=== PATIENT | male | born 2000 | race African-American/Black ===

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

== ENCOUNTER 2020-03-09 12:15 | Emergency (ER) | payer MEDICAID, OTHER ==
[2020-03-09] MEDS ORDERED: MAG HYDROX/AL HYDROX/SIMETH SUSP 30 ML UDCUP PO ONE (12:32)
[2020-03-09] MEDS ORDERED: METOCLOPRAMIDE HCL ORAL SOLN 10 MG/10 ML UDCUP PO ONE (12:32)
[2020-03-09] MEDS ORDERED: LIDOCAINE 2% VISCOUS SOLN 15 ML UDCUP PO ONE (12:32)
[2020-03-09] MEDS ORDERED: NORMAL SALINE 1000 ML 1,000 ML IV ONE (12:33)
--- NOTE | 2020-03-09 12:34 | ER Document Report ---
ED Medical Screen (RME) - General Chief Complaint: Epigastric Pain Stated Complaint: ABDOMINAL PAIN Time Seen by Provider: 03/09/20 12:28 Primary Care Provider: TODD ADAMES MD [ACTIVE STAFF] - Follow up as needed SHANNON MCKINNEY MD [NO LOCAL MD] - Follow up as needed ASCENCION MURO MD [ACTIVE STAFF] - Follow up as needed GIDEON TITUS [Primary Care Provider] - Follow up as needed Notes: Patient is a 19-year-old male who presents to the emergency department with a chief complaint of epigastric abdominal pain. Patient states that his symptoms started 2 days ago. Patient has a history of GERD. States that he took some Tums, but states that his pain got worse. Exam: Mildly tender epigastric area. I have greeted and performed a rapid initial assessment of this patient. A comprehensive ED assessment and evaluation of the patient, analysis of test results and completion of medical decision making process will be conducted by an additional ED providers. TRAVEL OUTSIDE OF THE [place] IN LAST 30 DAYS: No - Related Data Allergies/Adverse Reactions: No Known Allergies Allergy (Verified 12/12/18 12:43) Home Medications: nexium Past Medical History - Social History Chew tobacco use (# tins/day): No Frequency of alcohol use: None Drug Abuse: None - Past Medical History Cardiac Medical History: Denies: Hx Atrial Fibrillation, Hx Congestive Heart Failure, Hx Heart Attack, Hx Hypercholesterolemia, Hx Hypertension Pulmonary Medical History: Reports: Hx Asthma - ALBUTEROL, Hx Bronchitis, Hx Pneumonia Denies: Hx COPD Neurological Medical History: Denies: Hx Cerebrovascular Accident, Hx Seizures Endocrine Medical History: Denies: Hx Diabetes Mellitus Type 1, Hx Diabetes Mellitus Type 2 Renal/ Medical History: Denies: Hx Peritoneal Dialysis GI Medical History: Denies: Hx Gastroesophageal Reflux Disease, Hx Hepatitis, Hx Hiatal Hernia, Hx Ulcer Infectious Medical History: Denies: Hx Hepatitis Past Surgical History: Reports: Hx Orthopedic Surgery - L knee. Denies: Hx Open Heart Surgery, Hx Pacemaker - Immunizations Immunizations up to date: Yes Hx Diphtheria, Pertussis, Tetanus Vaccination: Yes Physical Exam - Vital signs Vitals: Temp Pulse Resp BP Pulse Ox 98.1 F 91 H 16 153/86 H 97 03/09/20 12:21 03/09/20 12:21 03/09/20 12:21 03/09/20 12:21 03/09/20 12:21 Course - Vital Signs Vital signs: Temp Pulse Resp BP Pulse Ox 98.6 F 73 16 135/81 H 98 03/09/20 14:14 03/09/20 14:14 03/09/20 12:26 03/09/20 14:14 03/09/20 14:14 - Laboratory Result Diagrams: 03/09/20 12:50 03/09/20 12:50 Laboratory results interpreted by me: 03/09/20 03/09/20 03/09/20 12:50 12:50 12:50 RBC 6.42 H Hgb 17.1 H MCV 78 L MCH 26.6 L RDW 14.4 H Carbon Dioxide 31 H Calcium 10.3 H Urine Ketones TRACE H Doctor's Discharge - Discharge Clinical Impression: Nausea Gastritis Qualifiers: Gastritis type: unspecified gastritis Chronicity: acute Gastritis bleeding: without bleeding Qualified Code(s): K29.00 - Acute gastritis without bleeding Condition: Stable Disposition: HOME, SELF-CARE Instructions: Antinausea Medication ([facility]), Gastritis ([facility]), Nausea or Vomiting, Nonspecific ([facility]) Additional Instructions: Return immediately for any new or worsening symptoms Followup with your primary care provider, call tomorrow to make a followup appointment Follow-up with a dolphin researcher for any persistent pain or problems Prescriptions: Sucralfate [Carafate 1 gm Tablet] 1 gm PO ACHS #40 tablet Ondansetron [Zofran Odt 4 mg Tablet] 1 tab PO Q6H #15 tab.rapdis Referrals: TODD ADAMES MD [ACTIVE STAFF] - Follow up as needed SHANNON MCKINNEY MD [NO LOCAL MD] - Follow up as needed ASCENCION MURO MD [ACTIVE STAFF] - Follow up as needed GIDEON TITUS [Primary Care Provider] - Follow up as needed
[2020-03-09 13:02] LABS: ABSOLUTE EOSINOPHILS # (AUTO) 0.1 10^3/uL (0.0-0.6); ABSOLUTE NEUT (AUTO) 6.7 10^3/uL (1.7-8.2); BASOPHILS % (AUTO) 0.4 % (0-2); EOSINOPHILS % (AUTO) 0.6 % (0-6); HEMATOCRIT 50.1 % (37.9-51.0); HEMOGLOBIN 17.1 g/dL (13.5-17.0); LYMPHOCYTES % (AUTO) 20.6 % (13-45); MEAN CORPUSCULAR HEMOGLOBIN 26.6 pg (27.0-33.4); MEAN CORPUSCULAR HGB CONC 34.1 g/dL (32.0-36.0); MEAN CORPUSCULAR VOLUME 78 fl (80-97); MONOCYTES % (AUTO) 9.8 % (3-13); PLATELET COUNT 282 10^3/uL (150-450); RED BLOOD COUNT 6.42 10^6/uL (4.35-5.55); RED CELL DISTRIBUTION WIDTH 14.4 % (11.5-14.0); SEGMENTED NEUTROPHILS % (AUTO) 68.6 % (42-78); TOTAL CELLS COUNTED % (AUTO) 100 %; WHITE BLOOD COUNT 9.7 10^3/uL (4.0-10.5)
[2020-03-09 13:06] LABS: APPEARANCE,URINE CLEAR; BILIRUBIN,URINE NEGATIVE (NEGATIVE); COLOR,URINE YELLOW; GLUCOSE, URINE NEGATIVE (NEGATIVE); KETONES,URINE TRACE mg/dL (NEGATIVE); LEUKOCYTE ESTERASE,URINE NEGATIVE (NEGATIVE); NITRITE,URINE NEGATIVE (NEGATIVE); PROTEIN,URINE NEGATIVE (NEGATIVE); URINE SPECIFIC GRAVITY 1.028; UROBILINOGEN,URINE NEGATIVE mg/dL (<2.0)
[2020-03-09 13:18] LABS: ALBUMIN 4.8 g/dL (3.7-5.6); ALKALINE PHOSPHATASE 66 U/L (65-260); ANION GAP 7 (5-19); ASPARTATE AMINO TRANSFERASE 24 U/L (10-45); BILIRUBIN,TOTAL 0.8 mg/dL (0.2-1.3); BLOOD UREA NITROGEN 13 mg/dL (7-20); CALCIUM 10.3 mg/dL (8.4-10.2); CARBON DIOXIDE 31 mmol/L (22-30); CHLORIDE 99 mmol/L (98-107); GLUCOSE 91 mg/dL (75-110); POTASSIUM 4.4 mmol/L (3.6-5.0)
--- NOTE | 2020-03-09 13:58 | ER Document Report ---
ED GI/ - General Chief Complaint: Epigastric Pain Stated Complaint: ABDOMINAL PAIN Time Seen by Provider: 03/09/20 12:28 Primary Care Provider: TODD ADAMES MD [ACTIVE STAFF] - Follow up as needed SHANNON MCKINNEY MD [NO LOCAL MD] - Follow up as needed ASCENCION MURO MD [ACTIVE STAFF] - Follow up as needed GIEDON TITUS [Primary Care Provider] - Follow up as needed Mode of Arrival: Ambulatory Information source: Patient Notes: Patient presents complaining of epigastric pain for the past 2 days with nausea. Patient denies any fever. Patient denies any cough cold symptoms or fever. Patient denies any vomiting or diarrhea. Patient does have a history of acid reflux for which he takes Nexium. Patient was given a GI cocktail in triage and now denies having any abdominal pain symptoms. TRAVEL OUTSIDE OF THE [place] IN LAST 30 DAYS: No - HPI Patient complains to provider of: Abdominal pain. No: Vomiting Onset: Other - 2 days Timing/Duration: Better Quality of pain: No pain Severity at maximum: Moderate Pain Level: Denies Location: Epigastric Associated symptoms: Nausea. denies: Chest pain, Erection problem, Urinary hesitancy, Urinary frequency, Urinary retention, Urinary urgency, Vomiting Exacerbated by: Denies Relieved by: Denies Similar symptoms previously: Yes Recently seen / treated by doctor: No - Related Data Allergies/Adverse Reactions: No Known Allergies Allergy (Verified 12/12/18 12:43) Home Medications: nexium Past Medical History - General Information source: Patient - Social History Smoking Status: Never Smoker Chew tobacco use (# tins/day): No Frequency of alcohol use: None Drug Abuse: None Occupation: pressure washing Family History: Reviewed & Not Pertinent Patient has homicidal ideation: No Pulmonary Medical History: Reports: Hx Asthma - ALBUTEROL, Hx Bronchitis, Hx Pneumonia Denies: Hx COPD Neurological Medical History: Denies: Hx Cerebrovascular Accident, Hx Seizures Endocrine Medical History: Denies: Hx Diabetes Mellitus Type 1, Hx Diabetes Mellitus Type 2 Renal/ Medical History: Denies: Hx Peritoneal Dialysis GI Medical History: Reports: Hx Gastroesophageal Reflux Disease. Denies: Hx Hepatitis, Hx Hiatal Hernia, Hx Ulcer Infectious Medical History: Denies: Hx Hepatitis Past Surgical History: Reports: Hx Orthopedic Surgery - L knee - Immunizations Immunizations up to date: Yes Hx Diphtheria, Pertussis, Tetanus Vaccination: Yes Review of Systems - Review of Systems Constitutional: No symptoms reported. denies: Fever EENT: No symptoms reported Cardiovascular: No symptoms reported. denies: Chest pain Respiratory: No symptoms reported. denies: Cough, Short of breath Gastrointestinal: Abdominal pain, Nausea. denies: Diarrhea, Vomiting Genitourinary: No symptoms reported Male Genitourinary: No symptoms reported Musculoskeletal: No symptoms reported. denies: Back pain Skin: No symptoms reported Hematologic/Lymphatic: No symptoms reported Neurological/Psychological: No symptoms reported Physical Exam - Vital signs Vitals: Temp Pulse Resp BP Pulse Ox 98.1 F 91 H 16 153/86 H 97 03/09/20 12:21 03/09/20 12:21 03/09/20 12:21 03/09/20 12:21 03/09/20 12:21 - General General appearance: Appears well, Alert In distress: None - HEENT Head: Normocephalic Eyes: Normal Conjunctiva: Normal Nasal: Normal Mouth/Lips: Normal Mucous membranes: Normal Neck: Normal, Supple. No: Lymphadenopathy - Respiratory Respiratory status: No respiratory distress Chest status: Nontender Breath sounds: Normal. No: Rales, Rhonchi, Stridor, Wheezing Chest palpation: Normal - Cardiovascular Rhythm: Regular Heart sounds: S1 appreciated, S2 appreciated Murmur: No - Abdominal Inspection: Normal Distension: No distension Bowel sounds: Normal Tenderness: Nontender Organomegaly: No organomegaly - Back Back: Normal, Nontender. No: CVA tenderness - Extremities General upper extremity: Normal inspection, Normal ROM General lower extremity: Normal inspection, Normal ROM - Neurological Neuro grossly intact: Yes Cognition: Normal [place] Coma Scale Eye Opening: Spontaneous [place] Coma Scale Verbal: Oriented Sel[place] Coma Scale Motor: Obeys Commands Selam Coma Scale Total: 15 - Psychological Associated symptoms: Normal affect, Normal mood - Skin Skin Temperature: Warm Skin Moisture: Dry Skin Color: Normal Course - Re-evaluation Re-evalutation: 03/09/20 13:56 Patient without any elevation in LFTs or lipase. Patient presents with mild dehydration. Patient was given a liter of IV fluids patient presents with abdominal pain without signs of peritonitis or other life-threatening or serious etiology. Patient appears stable for discharge and has been instructed to return immediately if the symptoms worsen in any way. 03/09/20 13:57 - Vital Signs Vital signs: Temp Pulse Resp BP Pulse Ox 98.6 F 73 16 135/81 H 98 03/09/20 14:14 03/09/20 14:14 03/09/20 12:26 03/09/20 14:14 03/09/20 14:14 - Laboratory Result Diagrams: 03/09/20 12:50 03/09/20 12:50 Laboratory results interpreted by me: 03/09/20 03/09/20 03/09/20 12:50 12:50 12:50 RBC 6.42 H Hgb 17.1 H MCV 78 L MCH 26.6 L RDW 14.4 H Carbon Dioxide 31 H Calcium 10.3 H Urine Ketones TRACE H 03/09/20 13:56 Labs- Entire Visit 03/09/20 03/09/20 03/09/20 12:50 12:50 12:50 WBC 9.7 RBC 6.42 H Hgb 17.1 H Hct 50.1 MCV 78 L MCH 26.6 L MCHC 34.1 RDW 14.4 H Plt Count 282 Lymph % (Auto) 20.6 [place] % (Auto) 9.8 Eos % (Auto) 0.6 Baso % (Auto) 0.4 Absolute Neuts (auto) 6.7 Absolute Lymphs (auto) 2.0 Absolute Monos (auto) 1.0 Absolute Eos (auto) 0.1 Absolute Basos (auto) 0.0 Seg Neutrophils % 68.6 Sodium 137.0 Potassium 4.4 Chloride 99 Carbon Dioxide 31 H Anion Gap 7 BUN 13 Creatinine 0.97 Est GFR ( Amer) > 60 Est GFR (MDRD) Non-Af > 60 Glucose 91 Calcium 10.3 H Total Bilirubin 0.8 Direct Bilirubin 0.0 Neonat Total Bilirubin Not Reportable Neonat Direct Bilirubin Not Reportable Neonat Indirect Bili Not Reportable AST 24 ALT 47 Alkaline Phosphatase 66 Total Protein 8.0 Albumin 4.8 Lipase 43.2 Urine Color YELLOW Urine Appearance CLEAR Urine pH 6.0 Ur Specific [place] 1.028 Urine Protein NEGATIVE Urine Glucose (UA) NEGATIVE Urine Ketones TRACE H Urine Blood NEGATIVE Urine Nitrite NEGATIVE Urine Bilirubin NEGATIVE Urine Urobilinogen NEGATIVE Ur Leukocyte Esterase NEGATIVE Urine WBC (Auto) 1 Urine RBC (Auto) 1 Squamous Epi Cells Auto <1 Urine Mucus (Auto) MANY Urine Ascorbic Acid NEGATIVE Discharge - Discharge Clinical Impression: Nausea Gastritis Qualifiers: Gastritis type: unspecified gastritis Chronicity: acute Gastritis bleeding: without bleeding Qualified Code(s): K29.00 - Acute gastritis without bleeding Condition: Stable Disposition: HOME, SELF-CARE Instructions: Antinausea Medication ([facility]), Gastritis ([facility]), Nausea or Vomiting, Nonspecific ([facility]) Additional Instructions: Return immediately for any new or worsening symptoms Followup with your primary care provider, call tomorrow to make a followup appointment Follow-up with a room attendant for any persistent pain or problems Prescriptions: Sucralfate [Carafate 1 gm Tablet] 1 gm PO ACHS #40 tablet Ondansetron [Zofran Odt 4 mg Tablet] 1 tab PO Q6H #15 tab.rapdis Referrals: GIDEON TITUS [Primary Care Provider] - Follow up as needed SHANNON MCKINNEY MD [NO LOCAL MD] - Follow up as needed TODD ADAMES MD [ACTIVE STAFF] - Follow up as needed ASCENCION MURO MD [ACTIVE STAFF] - Follow up as needed
[2020-03-09 14:17] VITALS: BP 135/81
== END 2020-03-09 14:18 | disposition home or self-care (01) ==
LOC: ER 12:15
DX: K29.00 Acute gastritis without bleeding (principal); R11.0 Nausea; R10.13 Epigastric pain
CPT/HCPCS: 99284; 36415; 83690; 85025; 80053; 81001; J3490; J7030

== ENCOUNTER 2020-03-11 02:21 | Emergency (ER) | payer OTHER ==
[2020-03-11 02:27] VITALS: BP 144/72
== END 2020-03-11 03:29 | disposition left against medical advice (07) ==
LOC: ER 02:21
DX: Z53.21 Procedure and treatment not carried out due to patient leaving prior to being seen by health care provider (principal); R10.10 Upper abdominal pain, unspecified